=== PATIENT | female | born 1990 | race African-American/Black ===

== ENCOUNTER 2020-03-10 09:08 | Inpatient (IN) ==
[2020-03-10] MEDS ORDERED: FAMOTIDINE 20 MG/2 ML VIAL IV ONE (10:02)
[2020-03-10] MEDS ORDERED: CITRIC ACID/SODIUM CITRATE 30 ML UDCUP PO ONE (10:02)
[2020-03-10] MEDS ORDERED: ceFAZolin 2,000 MG in PREMIX 1 EACH IV ONE (10:02)
[2020-03-10 10:15] LABS: Basophils % 0.4 % (0.0-0.8); Eosinophils # 0.3 10*3/uL (0.0-0.87); Eosinophils % 3.5 % (0.00-10.9); Hemoglobin 9.4 GM/DL (12.0-16.0); Immature Granulocytes % 0.6 %; Immature Granulocytes Absolute 0.05 #; Lymphocytes # 1.9 10*3/uL (1.4-4.0); Lymphocytes % 23.1 % (21.3-54.2); Mean Corpuscular HGB Conc 31.3 GM/DL (32-36); Mean Corpuscular Volume 78.3 FL (87-102); Mean Platelet Volume 10.1 FL (9.6-12.0); Monocytes % 10.2 % (1.7-12.7); NRBC # 0.02 10*3/uL; Neutrophils % 62.2 % (38.7-73.9); Platelet Count 241 T/CUMM (130-400); Red Blood Count 3.83 MC/CUMM (3.8-5.5); Red Cell Distribution Width 17.7 % (9.3-17.3); White Blood Count 8.1 T/CUMM (4-12)
[2020-03-10] MEDS ORDERED: LACTATED RINGERS 1,000 ML IV SCH (10:30)
[2020-03-10 10:33] LABS: Alanine Aminotransferase 12 U/L (13-56); Albumin 2.2 G/DL (3.4-5.0); Alkaline Phosphatase 114 U/L (45-117); Aspartate Amino Transferase 16 U/L (0-37); Bilirubin,Total < 0.39 MG/DL (0.2-1.0); Blood Urea Nitrogen 7 MG/DL (7-18); Calcium 8.7 MG/DL (8.5-10.1); Estimated Glom Filtration Rate 244 ML/MIN; Glucose 85 MG/DL (74-106); Osmolality,Calculated 269.8 MOS/KG (273-304); Total Protein 7.4 G/DL (6.4-8.3)
[2020-03-10] MEDS ORDERED: OXYTOCIN 10 UNIT/ML VIAL IM ONE (13:07)
[2020-03-10] MEDS ORDERED: METHYLERGONOVINE 0.2 MG/1 ML AMP ONE (13:35)
[2020-03-10] MEDS ORDERED: CARBOPROST TROMETHAMINE 250 MCG/ML AMP IM ONE (13:36)
[2020-03-10] MEDS ORDERED: OXYTOCIN/LR 30 UNIT/1,000 ML BAG IV ONE (13:37)
[2020-03-10 15:33] LABS: Cord Arterial Blood HCO3 21.3 MMOL/L
[2020-03-10] MEDS ORDERED: MICROFIBRILLAR COLLAGEN POWDER 1 GM CAN TOP ONE ×2 (15:33→15:40)
[2020-03-10 15:36] LABS: Cord Venous Blood HCO3 22.7 MMOL/L; Cord Venous Blood PCO2 38.8 MMHG; Cord Venous Blood PO2 39.7
[2020-03-10] MEDS ORDERED: PHENYLEPHRINE 1 MG/10 ML SYRINGE IV ONE (15:55)
[2020-03-10] MEDS ORDERED: OXYTOCIN/LR 20 UNIT/1,000 ML BAG IV ONE (15:56)
[2020-03-10] MEDS ORDERED: fentaNYL 100 MCG/2 ML VIAL ONE (15:56)
[2020-03-10] MEDS ORDERED: ACETAMINOPHEN 325 MG TABLET PO PRN (15:56)
[2020-03-10] MEDS ORDERED: RHO(D) IMMUNE GLOBULIN 300 MCG SYRINGE IM ONE (15:56)
[2020-03-10] MEDS ORDERED: ONDANSETRON 4 MG/2 ML VIAL IV PRN (15:56)
[2020-03-10] MEDS ORDERED: BUPIVACAINE SPINAL 0.75% 2 ML AMP SPINAL ONE (15:56)
[2020-03-10] MEDS ORDERED: MORPHINE 10 MG/10 ML VIAL ONE (15:56)
[2020-03-10 15:59] LABS: Apearance,Urine CLEAR (Clear); Bilirubin,Urine Negative (Negative); Blood, Urine Negative (Negative); Glucose,Urine (UA) Negative (Negative); Ketones,Urine 5 mg/dL (Negative); Mucus,Urine Occasional /LPF (Occasional); Nitrite,Urine Negative (Negative); Protein,Urine Negative; RBC,Urine <1 /HPF (0-4); Squamous Epithelial Cell,Urine Occasional /HPF (0-10); Urine Color Yellow (Yellow); Urine Specific Gravity 1.018 (1.001-1.035); Urine Urobilinogen < 2.0 EU/DL (0.2-1.0); WBC,Urine 1 /HPF (0-6)
[2020-03-10] MEDS ORDERED: ceFAZolin 1,000 MG in SYRINGE 1 EACH IV SCH (16:00)
[2020-03-10] MEDS: IBUPROFEN 800 MG TABLET PO PRN (17:36)
[2020-03-10] MEDS ORDERED: diphenhydrAMINE CAP 25 MG CAPSULE PO PRN (20:24)
[2020-03-10] MEDS ORDERED: SODIUM CHLORIDE 0.9% 100 ML IV ONE (22:31)
[2020-03-10] MEDS: ceFAZolin 1,000 MG in SYRINGE 1 EACH IV SCH (22:37)
[2020-03-10] MEDS: DOCUSATE SODIUM 100 MG CAPSULE PO SCH (22:49)
[2020-03-11] MEDS: LACTATED RINGERS 1,000 ML IV SCH ×2 (01:40→05:19)
[2020-03-11] MEDS: IBUPROFEN 800 MG TABLET PO PRN ×3 (04:40→19:39)
[2020-03-11 06:00] LABS: Basophils % 0.2 % (0.0-0.8); Eosinophils # 0.2 10*3/uL (0.0-0.87); Eosinophils % 2.1 % (0.00-10.9); Hematocrit 31.1 VOL% (35.7-47.0); Hemoglobin 9.5 GM/DL (12.0-16.0); Immature Granulocytes % 1.7 %; Immature Granulocytes Absolute 0.14 #; Lymphocytes # 1.2 10*3/uL (1.4-4.0); Lymphocytes % 15.5 % (21.3-54.2); Mean Corpuscular HGB Conc 30.5 GM/DL (32-36); Mean Corpuscular Volume 79.7 FL (87-102); Mean Platelet Volume 11.3 FL (9.6-12.0); Monocytes % 9.9 % (1.7-12.7); Neutrophils % 70.6 % (38.7-73.9); Platelet Count 229 T/CUMM (130-400); Red Cell Distribution Width 17.4 % (9.3-17.3)
[2020-03-11] MEDS: ceFAZolin 1,000 MG in SYRINGE 1 EACH IV SCH (06:17)
[2020-03-11] MEDS: DOCUSATE SODIUM 100 MG CAPSULE PO SCH ×3 (08:41→20:14)
[2020-03-11] MEDS: SIMETHICONE CHEW 80 MG TABLET PO PRN ×2 (08:41→19:41)
[2020-03-11] MEDS: FERROUS SULFATE 325 MG TABLET PO SCH ×3 (08:42→20:14)
[2020-03-11] MEDS: MAGNESIUM HYDROXIDE SUSP 30 ML UDCUP PO PRN ×2 (08:42→19:41)
[2020-03-11] MEDS: MULTIVITAMIN (PRENATAL) TABLET PO SCH (08:42)
[2020-03-11] MEDS: POTASSIUM CHLORIDE 20 MEQ TABLET PO SCH ×3 (08:42→20:14)
[2020-03-11] MEDS: METOCLOPRAMIDE 10 MG TABLET PO SCH ×2 (08:42→16:47)
[2020-03-11] MEDS ORDERED: BISACODYL 10 MG SUPP RECTAL PRN (21:42)
[2020-03-12] MEDS: METOCLOPRAMIDE 10 MG TABLET PO SCH (00:47)
[2020-03-12] MEDS ORDERED: ONDANSETRON 4 MG TABLET PO PRN (02:34)
[2020-03-12] MEDS: IBUPROFEN 800 MG TABLET PO PRN (05:30)
[2020-03-12] MEDS: SIMETHICONE CHEW 80 MG TABLET PO PRN (06:50)
[2020-03-12 08:14] VITALS: BP 113/61
[2020-03-12] MEDS: MULTIVITAMIN (PRENATAL) TABLET PO SCH (08:55)
[2020-03-12] MEDS: FERROUS SULFATE 325 MG TABLET PO SCH (08:55)
[2020-03-12] MEDS: DOCUSATE SODIUM 100 MG CAPSULE PO SCH (08:55)
== END 2020-03-12 14:50 | disposition home or self-care (01) | DRG 540 ==
LOC: N.LDOUT 09:08 → N.LD 09:09 → N.OB 19:58
PROVIDERS: ADMIT Obstetrics & Gynecology; ATTEND Obstetrics & Gynecology
PROC: LDCSECT (ICD-10-PCS; 2020-03-10 14:00)